=== PATIENT | male | born 1955 | race American Indian/Alaskan Native ===

== ENCOUNTER 2016-06-25 14:45 | Outpatient (CLI) | payer BC, OTHER ==
[2016-06-25 15:17] LABS: Hematocrit 40.5 % (35.5-45.6); Hemoglobin 13.3 gm/dl (11.8-15.2); Mean Corpuscular HGB Conc 33 % (32-34); Mean Corpuscular Hemoglobin 26 pg (28-32); Mean Corpuscular Volume 78 fl (84-94); Platelet Count 239 K/mm3 (140-440); Red Blood Count 5.22 M/mm3 (3.65-5.03); Red Cell Distribution Width 14.4 % (13.2-15.2); White Blood Count 7.4 K/mm3 (4.5-11.0)
[2016-06-25 15:36] LABS: Erythrocyte Sedimentation Rate 15 mm/Hr (0-20)
[2016-06-25 15:49] LABS: Alanine Aminotransferase 13 units/L (7-56); Albumin 3.8 g/dL (3.9-5); Albumin/Globulin Ratio 1.1 %; Alkaline Phosphatase 85 units/L (35-129); Anion Gap 19 mmol/L; Bilirubin,Total 0.2 mg/dL (0.1-1.2); Blood Urea Nitrogen 10 mg/dL (9-20); Calcium 8.6 mg/dL (8.4-10.2); Carbon Dioxide 26 mmol/L (22-30); Chloride 100.1 mmol/L (98-107); Glucose 103 mg/dL (75-100); Potassium 3.9 mmol/L (3.6-5.0); Sodium 141 mmol/L (137-145); Total Protein 7.2 g/dL (6.3-8.2)
== END 2016-06-25 14:46 | disposition home or self-care (01) ==
LOC: LAB 14:45
PROVIDERS: ATTEND Specialist
DX: G45.9 Transient cerebral ischemic attack, unspecified (principal)
CPT/HCPCS: 36415; 80053; 82164; 82607; 83036; 83921; 84443; 85027; 85652; 86038; 86225; 86592; 86618

== ENCOUNTER 2016-09-18 10:32 | Outpatient (CLI) | payer BC, OTHER ==
--- NOTE | 2016-09-18 14:47 | Ultrasound Report ---
ULTRASOUND THYROID SCAN HISTORY: Thyroid nodule. FINDINGS: No comparison. The thyroid gland is normal size and contour. The right lobe measures 4.6 x 1.4 x 1.6 cm. The left lobe measures 4.4 x 1.5 x 2.3 cm. The isthmus measures 4 mm. Within the mid right thyroid lobe, a solitary 9 mm hypoechoic nodule is identified with positive blood flow on color Doppler. No obvious calcifications. IMPRESSION: Solitary 9 mm right thyroid lobe nodule as outlined above. This probably represents a benign lesion. Consider surveillance. This lesion should be accessible for ultrasound-guided biopsy if needed.
== END 2016-09-18 10:33 | disposition home or self-care (01) ==
LOC: US 10:32
PROVIDERS: ATTEND Internal Medicine
DX: E04.1 Nontoxic single thyroid nodule (principal)
CPT/HCPCS: 76536

== ENCOUNTER 2016-11-04 04:08 | Emergency (ER) | payer BC, OTHER ==
[2016-11-04 06:00] VITALS: BP 154/91
[2016-11-04 06:31] LABS: Hematocrit 43.2 % (35.5-45.6); Mean Corpuscular HGB Conc 33 % (32-34); Mean Corpuscular Volume 77 fl (84-94); Platelet Count 250 K/mm3 (140-440); Red Blood Count 5.59 M/mm3 (3.65-5.03); Red Cell Distribution Width 14.8 % (13.2-15.2); White Blood Count 8.9 K/mm3 (4.5-11.0)
[2016-11-04 06:37] LABS: Mean Corpuscular Hemoglobin 25 pg (28-32)
[2016-11-04 06:43] LABS: Anion Gap 16 mmol/L; BUN/Creatinine Ratio 12.22; Blood Urea Nitrogen 11 mg/dL (9-20); Calcium 8.9 mg/dL (8.4-10.2); Carbon Dioxide 28 mmol/L (22-30); Chloride 97.4 mmol/L (98-107); Glucose 108 mg/dL (75-100); Potassium 4.4 mmol/L (3.6-5.0); Sodium 137 mmol/L (137-145)
--- NOTE | 2016-11-04 11:07 | Emergency Department Report ---
HPI - General Chief Complaint: Headache Time Seen by Provider: 11/04/16 10:47 - HPI HPI: This is a 61-year-old -[place] male presents to the emergency department from home, driving himself in to be seen, with complaint of a headache. The headache began acutely at about 2:30 AM and was affecting the left side of his head around the christian, left ear and under the left eye. There was no vision change or eye pain, slurred speech, fever or any neurological deficits. The patient went downstairs and took an aspirin and came back up and the headache improved but did not resolve. He texted his primary care physician, Dr. Parmjit Vasques, who said that if the pain continued that he should go to the emergency department for further evaluation. The patient drove himself in here to be seen but says that while waiting in the waiting room, around 6 AM this morning, the pain spontaneously resolved. He currently is asymptomatic without any complaints. He has a past history of hypertension. No recent travel or sick contacts at home. ED Past Medical Hx - Past Medical History Previous Medical History?: Yes Hx Hypertension: Yes - Social History Smoking Status: Never Smoker ED Review of Systems ROS: Stated complaint: QUACH/L EYE/EAR/CHEEK PAIN Other details as noted in HPI Comment: All other systems reviewed and negative Constitutional: denies: chills, fever Eyes: denies: eye pain, eye discharge, vision change ENT: denies: ear pain, throat pain Respiratory: denies: cough, shortness of breath, wheezing Cardiovascular: denies: chest pain, palpitations Gastrointestinal: denies: abdominal pain, nausea, diarrhea Genitourinary: denies: urgency, dysuria Musculoskeletal: denies: back pain, joint swelling, arthralgia Skin: denies: rash, lesions Neurological: headache. denies: weakness Physical Exam - Physical Exam Vital Signs: Vital Signs 11/04/16 05:49 Temperature 98.0 F Pulse Rate 67 Respiratory 20 Rate Blood Pressure 154/91 O2 Sat by Pulse 99 Oximetry Physical Exam: GENERAL: The patient is well-developed well-nourished. HEENT: Normocephalic. Atraumatic. Extraocular motions are intact. Patient has moist mucous membranes. Pupils equal reactive to light bilaterally. No nystagmus. NECK: Supple. Trachea is midline. CHEST/LUNGS: Clear to auscultation. There is no respiratory distress noted. HEART/CARDIOVASCULAR: Regular. There is no tachycardia. There is no gallop rub or murmur. ABDOMEN: Abdomen is soft, nontender. Patient has normal bowel sounds. There is no abdominal distention. SKIN: Skin is warm and dry. NEURO: The patient is awake, alert, and oriented. The patient is cooperative. The patient has no focal neurologic deficits. The patient has normal speech. Cranial nerves II through XII grossly intact. MUSCULOSKELETAL: There is no tenderness or deformity. There is no limitation range of motion. There is no evidence of acute injury. ED Course Vital Signs 11/04/16 05:49 Temperature 98.0 F Pulse Rate 67 Respiratory 20 Rate Blood Pressure 154/91 O2 Sat by Pulse 99 Oximetry ED Medical Decision Making - Lab Data Result diagrams: 11/04/16 06:03 11/04/16 06:03 - Medical Decision Making 61-year-old male presents with left-sided headache that started spontaneously around 2:30 AM and then spontaneously resolved around 6 AM. It is now 11 AM and the patient has been pain-free, asymptomatic without any complaints for the past 5 hours. It was never any focal, motor or sensory deficits and his cranial nerves are intact. The patient had workup for head and neck pain in the past including MRIs and follows with both a primary care doctor and neurologist. His vital signs are stable throughout his ED course. For all these reasons, the patient does not appear to need any further imaging at this time. However he will return to the ER with any recurrence of his leg or any development of any neurological deficits. Otherwise he will follow-up with his primary care physician and neurologist. - Differential Diagnosis tension headache, cluster headache, migraine, brain bleed Critical Care Time: No Critical care attestation.: If time is entered above; I have spent that time in minutes in the direct care of this critically ill patient, excluding procedure time. ED Disposition Clinical Impression: Headache Qualifiers: Headache type: unspecified Headache chronicity pattern: acute headache Intractability: not intractable Qualified Code(s): R51 - Headache Disposition: DISCHARGED TO HOME OR SELFCARE Is pt being admited?: No Condition: Good Instructions: Acute Headache (ED) Additional Instructions: Please follow-up with your primary care doctor and neurologist. Return to the emergency department with any recurrence of your headache, development of any slurred speech or neurological deficits, or any acute distress. Referrals: PARMJIT VASQUES MD [Staff Physician] - 3-5 Days AZUL KELLER MD [Referring] - 3-5 Days Time of Disposition: 11:07
== END 2016-11-04 11:25 | disposition home or self-care (01) ==
LOC: ED 04:08
DX: R51 Headache (principal); I10 Essential (primary) hypertension
CPT/HCPCS: 36415; 80048; 85027; 99283

== ENCOUNTER 2021-04-23 12:20 | Outpatient (CLI) | payer MEDICARE, OTHER ==
[2021-04-23 12:48] LABS: Basophils # (Auto) 0.1 K/mm3 (0.0-0.1); Basophils % (Auto) 1.2 % (0.0-1.8); Eosinophils # (Auto) 0.2 K/mm3 (0.0-0.4); Eosinophils % (Auto) 2.5 % (0.0-4.3); Hematocrit 42.3 % (35.5-45.6); Hemoglobin 13.8 gm/dl (11.8-15.2); Lymphocytes % (Auto) 28.5 % (13.4-35.0); Mean Corpuscular HGB Conc 33 % (32-34); Mean Corpuscular Volume 78 fl (84-94); Monocytes # (Auto) 0.6 K/mm3 (0.0-0.8); Monocytes % (Auto) 9.1 % (0.0-7.3); Platelet Count 231 K/mm3 (140-440); Red Blood Count 5.45 M/mm3 (3.65-5.03); Red Cell Distribution Width 14.7 % (13.2-15.2)
[2021-04-23 13:03] LABS: Alanine Aminotransferase 17 units/L (7-56); Albumin 4.1 g/dL (3.9-5); BUN/Creatinine Ratio 10; Blood Urea Nitrogen 9 mg/dL (9-20); Calcium 8.8 mg/dL (8.4-10.2); Hemolysis Index 3
[2021-04-23 13:19] LABS: Erythrocyte Sedimentation Rate 8 mm/Hr (0-20)
== END 2021-04-23 12:21 | disposition home or self-care (01) ==
LOC: LAB 12:20
PROVIDERS: ATTEND Specialist
DX: G45.9 Transient cerebral ischemic attack, unspecified (principal)
CPT/HCPCS: 36415; 80053; 85025; 85652; 86140